=== PATIENT | female | born 1960 | race Caucasian/White ===

== ENCOUNTER 2019-08-09 14:06 | Outpatient (CLI) | payer OTHER ==
--- NOTE | 2019-08-09 19:35 | RAD ---
RIGHT WRIST THREE VIEWS: 08/09/19 No fracture, dislocation, or carpal abnormality was seen. The radiocarpal joint seems a bit narrow, b ut this would not be due to recent trauma. IMPRESSION: No acute findings. POS: HOME
== END 2019-08-09 14:07 | disposition home or self-care (01) ==
LOC: BURRAD 14:06
PROVIDERS: ATTEND Nurse Practitioner Family
DX: M25.531 Pain in right wrist (principal)